=== PATIENT | male | born 1970 | race Caucasian/White ===

== ENCOUNTER 2019-03-10 12:04 | Inpatient (IN) ==
[2019-03-10] MEDS ORDERED: ETOMIDATE 20 MG/10 ML VIAL IV STA (12:11)
[2019-03-10] MEDS ORDERED: ROCURONIUM 100 MG/10 ML VIAL IV STA (12:11)
[2019-03-10] MEDS ORDERED: PROPOFOL 1,000 MG/100 ML BOTTLE IV ONE (12:14)
[2019-03-10] MEDS ORDERED: SODIUM CHLORIDE 0.9% 1,000 ML IV STA (12:17)
[2019-03-10] MEDS: PROPOFOL 1,000 MG/100 ML BOTTLE IV SCH ×4 (12:25→23:09)
[2019-03-10 12:27] LABS: ABG Base Excess -2.9 MMOL/L (-2.5-2.5); ABG Oxygen Saturation 99.4 % (95-100); ABG PCO2 44.5 MM HG (35-48); ABG PH 7.327 (7.35-7.45); ABG TCO2 20.2 MMOL/L (23-27)
[2019-03-10] MEDS ORDERED: ETOMIDATE 20 MG/10 ML VIAL IV ONE (12:28)
[2019-03-10 12:29] LABS: Basophils # 0.1 10*3/uL (0.0-0.2); Basophils % 0.4 % (0.0-0.8); Eosinophils # 0.1 10*3/uL (0.0-0.87); Eosinophils % 1.2 % (0.00-10.9); Hemoglobin 14.8 GM/DL (14.0-18.0); Immature Granulocytes % 0.5 %; Immature Granulocytes Absolute 0.06 #; Lymphocytes % 24.9 % (21.2-54.2); Mean Corpuscular HGB Conc 32.2 GM/DL (32-36); Mean Corpuscular Volume 91.8 FL (87-102); Mean Platelet Volume 11.5 FL (9.6-12.0); Monocytes % 6.3 % (1.7-12.7); Neutrophils % 66.7 % (38.7-73.9); Platelet Count 286 T/CUMM (130-400); Red Blood Count 5.01 MC/CUMM (3.8-5.5); Red Cell Distribution Width 13.3 % (9.3-17.3); White Blood Count 12.1 T/CUMM (4-12)
[2019-03-10] MEDS ORDERED: ROCURONIUM 100 MG/10 ML VIAL IV ONE (12:29)
[2019-03-10 12:39] LABS: INR 0.9; PT Patient Result 10.2 SECS; Partial Thromboplastin Time 22.2 SECS (0-40)
[2019-03-10 12:53] LABS: Albumin 4.1 G/DL (3.4-5.0); Bilirubin,Total 0.9 MG/DL (0.2-1.0); Calcium 8.8 MG/DL (8.5-10.1); Osmolality,Calculated 288.1 MOS/KG (273-304); Thyroid Stimulating Hormone 1.91 uIU/ml (0.358-3.74)
[2019-03-10 13:00] LABS: Barbiturates Screen,Urine Negative (Negative); Benzodiazepines Screen,Urine Positive (Negative); Cannabinoid Screen,Urine Negative (Negative); Opiate Screen,Urine Negative (Negative); Phencyclidine Screen,Urine Negative (Negative)
[2019-03-10 13:01] LABS: Apearance,Urine Slightly Hazy (Clear); Bilirubin,Urine Negative (Negative); Blood, Urine Small mg/dL (Negative); Glucose,Urine (UA) 50 mg/dL (Negative); Ketones,Urine Negative (Negative); Mucus,Urine Occasional /LPF (Occasional); Nitrite,Urine Negative (Negative); Protein,Urine 100 MG/DL; RBC,Urine 1 /HPF (0-4); Urine Color Yellow (Yellow); Urine Urobilinogen < 2.0 EU/DL (0.2-1.0); WBC,Urine 4 /HPF (0-6)
[2019-03-10] MEDS ORDERED: fentaNYL 100 MCG/2 ML VIAL ONE (13:12)
[2019-03-10] MEDS ORDERED: fentaNYL 100 MCG/2 ML VIAL IV STA (13:14)
[2019-03-10 13:58] VITALS: BP 114/72
[2019-03-10] MEDS ORDERED: ENOXAPARIN 40 MG/0.4 ML SYRINGE SUBCUT SCH (14:02)
[2019-03-10] MEDS ORDERED: MORPHINE 4 MG/1 ML VIAL IV PRN (14:02)
[2019-03-10] MEDS ORDERED: GLUCAGON 1 MG VIAL IM PRN (14:02)
[2019-03-10] MEDS ORDERED: DEXTROSE 50% 25 GM/50 ML SYRINGE IV PRN (14:02)
[2019-03-10] MEDS: LORazepam 2 MG/1 ML VIAL IV SCH ×3 (14:46→22:19)
[2019-03-10] MEDS: FAMOTIDINE 20 MG/2 ML VIAL IV SCH (14:58)
[2019-03-10] MEDS: SODIUM CHLORIDE 0.9% 1,000 ML IV SCH ×2 (15:10→23:09)
[2019-03-10] MEDS: INSULIN LISPRO 100 UNIT/ML SUBCUT SCH ×2 (16:48→21:06)
[2019-03-10 18:07] LABS: Troponin I 0.263 NG/ML (0.00-0.045)
[2019-03-11] MEDS: FAMOTIDINE 20 MG/2 ML VIAL IV SCH (01:54)
[2019-03-11] MEDS: LORazepam 2 MG/1 ML VIAL IV SCH ×2 (02:08→06:11)
[2019-03-11] MEDS: PROPOFOL 1,000 MG/100 ML BOTTLE IV SCH ×2 (02:51→06:38)
[2019-03-11 04:19] LABS: Basophils % 0.3 % (0.0-0.8); Eosinophils # 0.1 10*3/uL (0.0-0.87); Eosinophils % 0.4 % (0.00-10.9); Hematocrit 38.5 VOL% (42.0-52.0); Hemoglobin 12.6 GM/DL (14.0-18.0); Immature Granulocytes % 0.4 %; Immature Granulocytes Absolute 0.05 #; Lymphocytes # 1.5 10*3/uL (1.4-4.0); Lymphocytes % 13.5 % (21.2-54.2); Mean Corpuscular HGB Conc 32.7 GM/DL (32-36); Mean Corpuscular Volume 90.8 FL (87-102); Mean Platelet Volume 11.8 FL (9.6-12.0); Monocytes % 9.9 % (1.7-12.7); Neutrophils % 75.5 % (38.7-73.9); Platelet Count 213 T/CUMM (130-400); Red Blood Count 4.24 MC/CUMM (3.8-5.5); Red Cell Distribution Width 13.5 % (9.3-17.3); White Blood Count 11.1 T/CUMM (4-12)
[2019-03-11 04:38] LABS: Calcium 8.3 MG/DL (8.5-10.1); Osmolality,Calculated 289.6 MOS/KG (273-304)
[2019-03-11 04:41] LABS: Allen Test Positive; Pt O2 Delivery Device Ventilator
[2019-03-11 04:43] LABS: ABG Base Excess 1.3 MMOL/L (-2.5-2.5); ABG HCO3 25.6 MMOL/L (20-26); ABG Oxygen Saturation 98.7 % (95-100); ABG PCO2 33.8 MM HG (35-48); ABG PH 7.468 (7.35-7.45); ABG TCO2 21.2 MMOL/L (23-27)
[2019-03-11 05:24] LABS: Troponin I 0.059 NG/ML (0.00-0.045)
[2019-03-11] MEDS: SODIUM CHLORIDE 0.9% 1,000 ML IV SCH (07:19)
[2019-03-11] MEDS: ONDANSETRON 4 MG/2 ML VIAL IV PRN ×2 (08:44→12:40)
[2019-03-11] MEDS: INSULIN LISPRO 100 UNIT/ML SUBCUT SCH ×2 (10:01→11:56)
== END 2019-03-11 14:16 | disposition home or self-care (01) | DRG 71 ==
LOC: EDUNIT# → EDBD → N.ED 12:04 → N.EDINP 13:12 → N.CC 13:41
PROVIDERS: ADMIT Internal Medicine; ATTEND Internal Medicine